=== PATIENT | female | born 1950 | race Two or more races ===

== ENCOUNTER 2019-08-05 07:17 | Outpatient (CLI) | payer OTHER | END 2019-08-05 07:20 | disposition home or self-care (01) | LOC: SONOGRAMA 07:17 | DX: E04.1 Nontoxic single thyroid nodule (principal) ==

== ENCOUNTER → 2023-05-24 | Outpatient (CLI) | payer OTHER | END | disposition home or self-care (01) | LOC: RAD 11:42 | PROVIDERS: ATTEND Orthopaedic Surgery | DX: M25.551 Pain in right hip (principal) ==

== ENCOUNTER 2023-06-13 11:16 | Outpatient (CLI) | payer OTHER | END 2023-06-13 11:27 | disposition home or self-care (01) | LOC: TOM 11:16 | PROVIDERS: ATTEND Orthopaedic Surgery | DX: M25.551 Pain in right hip (principal) ==

== ENCOUNTER 2023-06-22 11:17 | Inpatient (IN) | payer OTHER ==
[~2023-06-22] VITALS: Ht 160 cm; Wt 64.9 kg
[2023-06-22] MEDS ORDERED: METFORMIN HCL1000 M2 PO (17:04)
[2023-06-22] MEDS ORDERED: GLIPIZIDE XL2.5 MG PO (17:04)
[2023-06-22] MEDS ORDERED: LEVO-T88 MCG PO (17:05)
[2023-06-22] MEDS ORDERED: ATORVASTATIN CA10 MG PO (17:05)
[2023-06-28 08:51] LABS: HEMATOCRIT 25.2 % (36.0-45.00); HEMOGLOBIN 8.5 g/dL (12.0-15.00); MEAN CELL VOLUME 87.1 fL (80.00-100.00); MEAN CORPUSCULAR HEMOGLOBIN 29.4 pg (27.00-32.0); MEAN CORPUSCULAR HGB CONC 33.7 g/dl (32.0-36.0); PLATELET COUNT 213 K/uL (150-450); RED BLOOD COUNT 2.89 M/uL (4.00-6.00); RED CELL DISTRIBUTION WIDTH 13.8 % (11.5-14.5)
[2023-06-28] MEDS ORDERED: XARELTO10 M1 (10:33)
[2023-06-28] MEDS ORDERED: LISINOPRIL2.5 MG (10:33)
[2023-06-28] MEDS ORDERED: IBANDRONATE SO150 MG (10:33)
[2023-06-28] MEDS ORDERED: GLIMEPIRIDE1 M1 (10:34)
[2023-06-29 05:08] LABS: MEAN CELL VOLUME 88.3 fL (80.00-100.00); MEAN CORPUSCULAR HGB CONC 34.2 g/dl (32.0-36.0); PLATELET COUNT 169 K/uL (150-450); RED BLOOD COUNT 3.06 M/uL (4.00-6.00); RED CELL DISTRIBUTION WIDTH 14.3 % (11.5-14.5)
[2023-06-29 05:10] LABS: HEMOGLOBIN 9.3 g/dL (12.0-15.00); MEAN CORPUSCULAR HEMOGLOBIN 30.3 pg (27.00-32.0)
[2023-06-29 05:16] LABS: ALBUMIN 2.3 gm/dL (3.4-5.0); BILIRUBIN TOTAL 0.59 mg/dL (0.3-1.2); CALCIUM 8.2 mg/dL (8.5-10.1); CREATININE SERUM 0.62 mg/dL (0.55-1.02); GFR 94.62; GLOBULINA 2.6 G/DL (2.4-3.5); POTASSIUM 3.52 mEq/L (3.5-5.1); TOTAL PROTEIN 4.9 gm/dL (6.4-8.2)
== END 2023-06-29 18:33 | disposition home or self-care (01) | DRG 470 ==
LOC: O/R 06-27 10:00 → SURH 06-27 11:45 → SURG 06-27 17:36
PROVIDERS: ADMIT Orthopaedic Surgery; ATTEND Orthopaedic Surgery
PROC: 0SR90JZ Replacement of Right Hip Joint with Synthetic Substitute, Open Approach (ICD-10-PCS; principal; 2023-06-27 12:30)
PROC: 30233N1 Transfusion of Nonautologous Red Blood Cells into Peripheral Vein, Percutaneous Approach (ICD-10-PCS; 2023-06-28)
DX: M16.11 Unilateral primary osteoarthritis, right hip (principal); D62 Acute posthemorrhagic anemia; M94.8X8 Other specified disorders of cartilage, other site; M25.751 Osteophyte, right hip; E11.9 Type 2 diabetes mellitus without complications; Z79.84 Long term (current) use of oral hypoglycemic drugs

== ENCOUNTER → 2024-03-08 13:17 | Outpatient (CLI) | payer OTHER ==
[~2024-03-08 13:17] MED LIST: ATORVASTATIN CA10 MG PO; GLIMEPIRIDE1 M1; GLIPIZIDE XL2.5 MG PO; IBANDRONATE SO150 MG; LEVO-T88 MCG PO; LISINOPRIL2.5 MG; METFORMIN HCL1000 M2 PO; XARELTO10 M1
== END | disposition home or self-care (01) ==
LOC: NUCLEAR 13:17
PROVIDERS: ATTEND Orthopaedic Surgery
DX: M81.0 Age-related osteoporosis without current pathological fracture (principal)